=== PATIENT | male | born 1955 | race Caucasian/White ===

== ENCOUNTER 2024-05-12 14:07 | Emergency (ER) | payer MEDICARE, SELFPAY ==
--- NOTE | ~2024-05-12 | XR_ITS ---
EXAMINATION: [id number] DATE: 05/12/2024 15:08 INDICATION: Right chest injury. Fall. TECHNIQUE: A frontal view of the chest and 2 views on 3 radiographs of the right ribs were obtained. COMPARISON: None. FINDINGS: There is no pneumonia, pleural effusion, or pneumothorax. The heart size is normal. There a re old healed left rib fractures. There is an old healed fracture of right ninth rib. IMPRESSION: 1. No acute rib fracture. Reviewed, dictated and finalized at location A. ABAP PROGRAMMER IMPRESSION: 1. No acute rib fracture.
--- NOTE | ~2024-05-12 | XR_ITS ---
EXAMINATION: XR humerus RT DATE: 05/12/2024 15:08 INDICATION: Right upper arm injury. TECHNIQUE: 2 views of right humerus were obtained. COMPARISON: None. FINDINGS: Alignment is normal. No fracture. There is moderate osteoarthritis of acromioclavicular umm nt. Glenohumeral joint is normal. IMPRESSION: 1. No fracture. Reviewed, dictated and finalized at location A. R QUALITY SPECIALIST IMPRESSION: 1. No fracture.
--- NOTE | 2024-05-12 14:16 | ED_ITS ---
HPI - Fall General Chief Complaint: Fall Stated Complaint: fall Time Seen by Provider: 05/12/24 14:15 Source: patient Mode of arrival: ambulatory Limitations: no limitations History of Present Illness HPI Narrative: Patient is a 68-year-old male that presents with right chest wall pain and bruising after fall yesterday. Patient was told to come to Urgent Care by PCP due to not being the see him. Patient denies any shortness of breath but does have pain with deep breath. Denies hitting head with fall. Related Data Home Medications Medication Instructions Recorded Confirmed azithromycin 250 mg tablet mg 05/12/24 celecoxib 200 mg capsule mg 05/12/24 fluticasone propionate 50 intranasal 05/12/24 mcg/actuation nasal spray,suspension levothyroxine 75 mcg tablet mcg 05/12/24 losartan 100 mg tablet mg 05/12/24 meloxicam 15 mg tablet mg 05/12/24 omeprazole 40 mg capsule,delayed mg 05/12/24 release rosuvastatin 10 mg tablet mg 05/12/24 Allergies Allergy/AdvReac Type Severity Reaction Status Date / Time No Known Allergies Allergy Verified 05/12/24 14:44 Review of Systems Review of Systems: All systems reviewed & are unremarkable except as noted in HPI and below Constitutional: Constitutional: Denies body ache(s), Denies chills, Denies fa tigue, Denies fever(s), Denies headache(s), Denies malaise and Denies weakness Eyes: Eyes: Denies blurry vision, Denies irritation and Denies loss of vision ENT: Denies otalgia, Denies headache(s), Denies nasal discharge, Denies sinus pain and Denies sore throat Cardiovascular: Cardiovascular: Denies chest pain, Denies irregular heart rhythm and Denies dyspnea Respiratory: Respiratory: Denies dyspnea and Reports other (Chest wall pain) Gastrointestinal: Gastrointestinal: Denies abdominal pain, Denies melena, Denies hematochezia, Denies diarrhea, Denies nausea and Denies vomiting Musculoskeletal: Musculoskeletal: Denies back pain, Denies myalgias and Denies arthralgias Integumentary/Breasts: Skin/Breast: Denies pruritus and Denies rash Neurologic: Denies headache(s), Denies loss of vision and Denies weakness Psychiatric: Psychiatric: Reports no additional psychiatric complaints Endocrine: Endocrine: Denies fatigue PMFSH Comments At time of signature, agree with nursing past medical, surgical, social and family history. There is no relevant family history pertinent to the presenting complaint. Exam Const: General: cooperative, healthy appearing, comfortable, no acute distress and well nourished Nutritional Appearance: well nourished Orientation/consciousness: patient oriented x3 Limitations: no limitations HENMT: Head: normal to inspection, normocephalic and atraumatic Ears: hearing grossly normal bilaterally and external ears normal Face/Nose/Sinus: Normal external nose present, normal facial exam and face symmetric Face and sinus: normal facial exam and face symmetric Mouth: Yes lip normal Eyes: General: appearance normal, both eyes and all related structures Alignment and Position: alignment normal and position normal Periorbital: periorbital findings normal Eyelids: eyelids normal Pupils: Equal, round and reactive pupils present EOM: EOMs intact bilaterally Neck: Neck: normal visual inspection, full ROM and supple Chest: Chest palpation & inspection: normal inspection of the chest and tenderness rib mid-axillary line involving the 6th rib, involving the 7th rib and involving the 8th rib Chest/axillae images: 1. Multiple stages of ecchymosis 2. Tenderness on palpation, ecchymosis 3. Tenderness on palpation, ecchymosis Resp: Effort & Inspection: normal respiratory effort and able to speak in complete sentences Auscultation: clear to auscultation bilaterally Cardio: Rate: regular rate Rhythm: regular rhythm Heart sounds: S1 normal heart sound present and S2 normal heart sound present GI: Inspection: normal to inspection Skin: General skin exam: normal color and no rashes or lesions noted Neuro: General: patient oriented x3 and moves all extremities Cranial nerves: Yes Equal, round and reactive pupils present Speech: normal speech Gait exam (Neuro): Normal gait present Extrem: General: normal to inspection, full ROM and no edema Right upper extremity: no joint enlargement, shoulder/upper arm tenderness of the proximal humerus, normal ROM and ecchymosis; no swelling and no deformity and elbow/forearm normal to inspection, normal ROM and distal pulses intact; no tenderness Psych: Appearance: grossly normal and well kempt Mental Status: mental status grossly normal Speech and movement: Normal speech and movement present Affect: normal affect Attitude: cooperative Thought process: Normal thought process present Course Course Emergency Course: Patient is aware of diagnosis, understands and agrees to treatment plan. An ticipatory guidance given. Patient agrees to follow-up as directed and is aware of reasons to seek care at the emergency department. Portions of this record may have been created with voice recognition software Level of Care: Express Care Visit Vital Signs Vital signs: Reviewed MDM - Fall MDM Narrative Medical decision making narrative: Exam findings show no acute concerns or changes; patient is non-toxic appearing and is in no distress.? Patient is appropriate for outpatient treatment and follow-up. Discharge instructions reviewed with patient, as well as provided in writing per nursing staff. The instructions also include specific and strict return/GO TO THE ER as well as f/u information. All questions have been answered, and the patient deny any further questions with discharge and discharge plan. Differential Diagnosis Differential diagnosis: Likely other (Rib fracture, humerus fracture, chest wall contusion) Imaging Data Radiologist's impression: EXAMINATION: [id number] DATE: 05/12/2024 15:08 INDICATION: Right chest injury. Fall. TECHNIQUE: A frontal view of the chest and 2 views on 3 radiographs of the right ribs were obtained. COMPARISON: None. FINDINGS: There is no pneumonia, pleural effusion, or pneumothorax. The heart size is normal. There are old healed left rib fractures. There is an old healed fracture of right ninth rib. IMPRESSION: 1. No acute rib fracture. EXAMINATION: XR humerus RT DATE: 05/12/2024 15:08 INDICATION: Right upper arm injury. TECHNIQUE: 2 views of right humerus were obtained. COMPARISON: None. FINDINGS: Alignment is normal. No fracture. 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 Glenohumeral joint is normal. IMPRESSION: 1. No fracture. Discharge Plan Discharge Clinical Impression: Chest wall hematoma, Fall, Contusion of rib on right side Patient Disposition: Home, Self-Care Condition: Stable Instructions: Hematoma (ED), Rib Contusion (ED) Additional Instructions: Pain may get worse for a week and last for up to eight weeks.The most important thing is to get your pain under control. Breathing exercises will not be effective unless your pain is controlled. Take your pain relieving medications as prescribed by your doctor, and continue to speak with your primary care doctor about maintaining your pain relief. Strenuous activities should be avoided for the first 3-4 weeks, after which you can commence physical activity as pain allows. If the pain is increasing you may be doing too much. Cough and deep breath at least 10 times per hour. Try holding a cushion firmly against the painful site when you conner and cough to decrease the pain. Sit out of bed and keep moving as much as you feel comfortable. This will decrease the risk of developing lung complications. Your blood pressure was elevated above 120/80 today at Urgent Care. This puts you above the threshold for follow up visit with a primary care provider. High blood pressure does not usually cause any symptoms, however it may lead to kidney failure, stroke, heart disease just to name a few if untreated . Many people are anxious when seeing a provider or nurse. As a result, you are not diagnosed with hypertension at this time unless your blood pressure is persistently high at two office visits at least one week apart. Some things that can help lower blood pressure are lifestyle modifications, such as light exercise, decreased salt in diet, and weight loss. It is important to follow up with a PCP about this within 1 week. Prescriptions: No Action celecoxib 200 mg capsule azithromycin 250 mg tablet meloxicam 15 mg tablet omeprazole 40 mg capsule,delayed release(DR/EC) levothyroxine 75 mcg tablet losartan 100 mg tablet fluticasone propionate 50 mcg/actuation spray,suspension INTRANASAL rosuvastatin 10 mg tablet Follow-up/Referrals: Derian Lucio MD [Primary Care Provider] - 3 Days Time of Disposition: 15:20
[2024-05-12 14:32] VITALS: BP 149/80; PULSE 98; RESP 18; TEMP 36.8; O2SAT 98
== END 2024-05-12 15:27 | disposition home or self-care (01) ==
PROVIDERS: Emergency Provider Nurse Practitioner Family; PCP Family Medicine
DX: S20.211A Contusion of right front wall of thorax, initial encounter (principal); W19.XXXA Unspecified fall, initial encounter; M79.621 Pain in right upper arm; I69.30 Unspecified sequelae of cerebral infarction
CPT/HCPCS: 71101; 73060; 99204; G0463